=== PATIENT | male | born 1960 | race African-American/Black ===

== ENCOUNTER 2017-04-28 06:53 | Inpatient (IN) | payer OTHER ==
[~2017-04-28] VITALS: Ht 177.8 cm; Wt 96.2 kg
[2017-04-28] VITALS (11 sets, daily range): BP systolic 124–150; BP diastolic 64–96
[~2017-04-28 06:53] MED LIST: ASPIR 8181 MG ORAL; ATORVASTATIN CA40 MG ORAL; OMEPRAZOLE20 M2 ORAL; XELJANZ5 MG PO; ceFAZolin sod 1 GM in NS 55 ML IVP ONE; celeBREX 200mg Cap **SURGERY PATIENTS ONLY PO ONE; oxyCONTIN 20mg tab ORAL ONE
--- NOTE | 2017-04-28 07:04 | Pre-Procedure Note/Attestation ---
Pre-Procedure Note/Attestation Complete Prior to Procedure Planned Procedure: right Procedure Narrative: Rt MIGUEL ÁNGEL Indications for Procedure Pre-Operative Diagnosis: rt hip arthritis Attestation I attest that I discussed the nature of the procedure; its benefits; risks and complications; and alternatives (and the risks and benefits of such alternatives ), prior to the procedure, with the patient (or the patient's legal installation service representative). I attest that, if there was a reasonable possibility of needing a blood transfusion, the patient (or the patient's legal installation service representative) was given the [facility] standardized written summary, pursuant to the [place] Blood Safety Act ([place] Health and Safety Code # 1645, as amended). I attest that I re-evaluated the patient just prior to the surgery and that there has been no change in the patient's H&P, except as documented below: none RAJ WARNER Apr 28, 2017 07:04
[2017-04-28] MEDS ORDERED: Duramorph PF 5mg/10ml amp ONE (07:08)
[2017-04-28] MEDS ORDERED: Bupivacaine 0.5% Inj 30 ml vial INJ ONE (07:08)
[2017-04-28] MEDS ORDERED: NeoSporin Gu Irrig 1ml Amp IRRIG ONE (07:08)
[2017-04-28] MEDS ORDERED: Bacitracin 50000 Units Vial ONE (07:08)
[2017-04-28] MEDS ORDERED: Tranexamic Acid 1000mg-Patients>50kg (1st Dose) IVPB ONE ×2 (07:15)
[2017-04-28] MEDS ORDERED: HYDROmorphone 1mg/ml Carpuject SUBQ PRN (07:45)
[2017-04-28] MEDS ORDERED: Milk of Magnesia 30ml Ud ORAL PRN (07:45)
[2017-04-28] MEDS ORDERED: Propofol 200mg/20ml IV ONE (08:00)
[2017-04-28] MEDS ORDERED: Midazolam 2mg/2ml Inj ONE (08:00)
[2017-04-28] MEDS ORDERED: Sterile Water Irrig 1000ml IRRIG ONE (08:00)
[2017-04-28] MEDS ORDERED: fentaNYL 100 mcg/2 mL IV ONE (08:00)
[2017-04-28] MEDS ORDERED: Morphine Sulfate 4mg/ml Inj ONE (08:00)
[2017-04-28] MEDS ORDERED: NS Irrig 1000ml ONE (08:00)
[2017-04-28] MEDS ORDERED: LR 1000ml ONE (08:00)
--- NOTE | 2017-04-28 08:49 | Anethesia Preoperative Eval ---
Anesthesia Pre-op PMH/ROS General Date of Evaluation: Apr 28, 2017 Time of Evaluation: 07:22 Anesthesiologist: Kenneth ASA Score: ASA 3 Mallampati Score Class I : Soft palate, uvula, fauces, pillars visible Class II: Soft palate, uvula, fauces visible Class III: Soft palate, base of uvula visible Class IV: Only hard plate visible Mallampati Classification: Class IV Surgeon: Theo Diagnosis: R hip DJD Surgical Procedure: R hip total arthroplasty Anesthesia History: none Family History: no anesthesia problems Allergies: Coded Allergies: No Known Allergies (Unverified , 04/28/17) Past Medical History Cardiovascular: Reports: HTN - borderline Pulmonary: Reports: DANAE - severe sleep study pending, Denies: asthma, COPD, other Gastrointestinal/Genitourinary: Reports: GERD, Denies: CRI, ESRD, other Neurologic/Psychiatric: Denies: dementia, CVA, depression/anxiety, TIA, other Endocrine: Reports: DM - borderline HEENT: Denies: cataract (L), cataract (R), glaucoma, INUPIAT (L), INUPIAT (R), other Hematology/Immune: Denies: anemia, DVT, bleeding disorder, other Musculoskeletal/Integumentary: Reports: RA Other: obesity PMH Narrative: as above PSxH Narrative: Colonoscopy, bronchoscopy Anesthesia Pre-op Phys. Exam Physician Exam Last Vital Signs Date Time Temp Pulse Resp B/P (MAP) Pulse Ox O2 Delivery O2 Flow Rate FiO2 04/28/17 07:28 97.3 89 18 139/96 99 Room Air 97.3 Constitutional: NAD Neurologic: CN 2-12 intact Cardiovascular: RRR, no M/R/G Respiratory: CTA Gastrointestinal: other - obesity Airway Exam Mallampati Score: Class IV MO: limited Neck: Short and thick ROM: limited - only back of the thung visible Teeth: intact Dentures: no upper, no lower Anesthesia Pre-op A/P Labs see chart Studies Pre-op Studies: EKG - NSR Risk Assessment & Plan Assessment: ASA 3 Plan: SAB vs GA Status Change Before Surgery: No Pre-Antibiotics Drug: Ancef 2gr. Given Within 1 Hr of Incision: Yes Time Given: 08:50 JUAN CARLOS SORENSEN M.D. Apr 28, 2017 08:49
[2017-04-28] MEDS ORDERED: LR 1000ml 1,000 ML IVLG SCH (09:14)
[2017-04-28] MEDS ORDERED: Hydromorphone 0.5mg/0.5ml inj IVP PRN (09:15)
[2017-04-28] MEDS ORDERED: Midazolam 2mg/2ml Inj IVP PRN (09:15)
[2017-04-28] MEDS ORDERED: Ketorolac 30mg Inj IV PRN (09:15)
[2017-04-28] MEDS ORDERED: DiphenhydrAMINE 50mg/ml Inj IVP PRN (09:15)
--- NOTE | 2017-04-28 11:27 | Brief Operative Note ---
Immediate Post Operative Note Operative Note Chief Complaint: rt hip pain Pre-op Diagnosis: rt hip arthritis Procedure: rt amari Post-op Diagnosis: same as pre-op Findings: consistent w/pre-op dx studies Surgeon: md tushar Product Development Coordinator: sara gonzalez Anesthesiologist: md pepper Anesthesia: general, regional Specimen: yes Complications: none Condition: stable Fluids: ns Estimated Blood Loss: minimal Drains: none Implant(s) used?: Yes - burgos and SHANIA Ramos Apr 28, 2017 11:27
--- NOTE | 2017-04-28 11:46 | Immediate Post-Op Evaluation ---
Immediate Post-Op Evalulation Immediate Post-Op Evalulation Procedure: R total hip arthroplasty Date of Evaluation: Apr 28, 2017 Time of Evaluation: 11:45 IV Fluids: 2100 Blood Products: none Estimated Blood Loss: 300 Urinary Output: 150 Blood Pressure Systolic: 124 Blood Pressure Diastolic: 89 Pulse Rate: 98 Respiratory Rate: 22 O2 Sat by Pulse Oximetry: 98 Temperature (Fahrenheit): 98.1 Pain Score (1-10): 1 Nausea: No Vomiting: No Complications none Patient Status: awake, patent, none Hydration Status: adequate JUAN CARLOS SORENSEN M.D. Apr 28, 2017 11:46
--- NOTE | 2017-04-28 12:30 | Diagnostic Imaging Report ---
Indication: Intraoperative Technique: One view of the pelvis Comparison: none Findings: Intraoperative images demonstrates resection of the right femoral neck and greater trochanter, placement of a femoral broach and acetabular cup Impression: Intraoperative imaging, as described
--- NOTE | 2017-04-28 13:50 | Diagnostic Imaging Report ---
Indication: Postoperative, status post right hip arthroplasty Technique: One view of the pelvis Comparison: One hour earlier Findings: Right hip hemiarthroplasty prosthesis is in place, good anatomic alignment. Retained air from the surgical wound is seen within the soft tissues. There is a Acosta catheter again demonstrated. Impression: Status post right hip hemiarthroplasty. No unusual features
[2017-04-28] MEDS: Docusate 100mg cap ORAL SCH ×2 (15:38→18:00)
[2017-04-28] MEDS: D5 1/2NS w/KCl 20mEq 1,000 ML IV SCH (15:38)
[2017-04-28] MEDS: ceFAZolin sod 2 GM in D5W 110 ML IV SCH ×2 (16:51→23:20)
--- NOTE | 2017-04-28 17:00 | Operative Note - Dictated ---
DATE OF OPERATION: 04/28/2017 PREOPERATIVE DIAGNOSIS: Right hip end-stage arthritis. POSTOPERATIVE DIAGNOSIS: Right hip end-stage arthritis. PROCEDURE: Right total hip arthroplasty using Moses and Nephew system, size 54, R3 cup with 2 screws, 120 mm and 125 mm, with a 20-degree lip ultra cross-linked polyethylene and size 7 standard offset anthology femoral component with 36 mm Oxinium +0 head. SURGEON: Wil Venegas M.D. SUPERVISOR PIPELINES: Renata Ellison PA-C. ANESTHESIOLOGIST: Hayden Jaquez M.D. ANESTHESIA: Spinal anesthesia combined with block for postoperative pain management. ESTIMATED BLOOD LOSS: Less than 100 mL. COMPLICATIONS: None. BRIEF HISTORY: The patient is a very pleasant 56-year-old gentleman, who has had ongoing right hip and anterior groin pain. He was evaluated and x-ray showed end-stage arthritis. After full discussion of the risks and benefits of the surgery and complications associated, which would including infection, bleeding, neurovascular complication, possibility of instability, possibility of dislocation, possibility of leg length discrepancy, possibility of decreased range of motion, possibility of need for further surgery, and resection arthroplasty and revision down the line as well as DVT and PEs, he opted for surgical treatment as described above. OPERATIVE PROCEDURE: The patient was brought to the operating table and was placed supine. All pressure points well padded. A spinal anesthesia was induced. The right hip was prepped and draped in usual sterile fashion. The time-out was performed and preop antibiotics were given and tranexamic acid was given. The right standard approach to the hip was undertaken. The posterolateral approach to the hip was undertaken. Incision was taken through the subcutaneous tissue and gluteal fascia, and tensor fascia was opened. The Charnley retractors were placed and short external rotators were released and the capsule was T'd and it was tagged for later repair. The release was performed medially and laterally. The head was dislocated and a standard head cut was performed without any complication. The cut was performed approximately 1 cm proximal to the lesser trochanter. Once this was completed, the anterior acetabular retractors were placed in and various retractors were placed around the acetabulum to get good access. Labrum was resected. There was a small medial osteophyte, which was reamed out with a 47 mm reamer. Subsequently, sequential reaming was performed all the way up to size 54 reamer, which provided excellent stability and good bone contact. 40 degrees of anteversion and 45 degrees of inclination was recreated. At this point, trial component was applied and appeared to be of perfect size. Acetabulum was thoroughly irrigated and an R3 cup was then malleted in with the same version and inclination and the cup was fully seated and there was excellent stability. Two dome screws were placed in for additional stability, 120 mm and 125 mm. Excellent stability was obtained. At this point, an ultra cross-linked polyethylene with [id number] was then placed in and locked in without any complication. The locking mechanism was checked and rechecked appeared to be perfect. At this point, care was given to the femur. The retractors on the acetabulum were removed. The retractors were placed around the femur. A box toe maker was used to lateralize the entry point of the femur and a canal finder was placed in. Sequential broaching was then performed from 0 to 7 mm and this provided excellent fill of the canal. At this point, the calcar reaming was performed and initially a high offset and subsequently, a standard offset trial was used with a 0 neck length and 36 mm diameter. This construct was reduced. Leg lengths were checked and appeared to be perfect. The stability was checked and appeared to be perfect at zero, 30 degrees, 45 degrees, 90 degrees of internal rotation, with neutral adduction. The external rotation was checked. There was approximately 45 degrees external rotation without any issues, and there was no anterior instability. Wounds were thoroughly irrigated. Intraoperative x-rays were obtained and leg length appeared to be equal. At this point, the entire construct was dislocated. Trial components removed and the canal was thoroughly irrigated. Acetabulum was thoroughly irrigated and at this point, a standard offset size 7 anthology stem was then placed in and malleted in without any complication. A 36 mm Oxinium +0 head was then applied and Linton taper was dried and locked in without complication. The entire construct was reduced without any complication. Once reduction was completed, the stability and ligament was checked and appeared to be perfect as described previously. At this point, the capsule was then repaired back onto the trochanter using #2 FiberWire sutures with drill hole. Wounds were thoroughly irrigated using copious amount of Simpulse irrigation. The tensor fascia and gluteal fascia was closed using #1 Vicryl suture. Subcutaneous tissue was closed using 2-0 Vicryl suture and the skin was closed using 3-0 Monocryl suture. Lap counts and instrument counts were all correct at the end of the case. Sterile dressing was applied and the patient was taken to the recovery room in stable condition. An abduction pillow was placed in for moving the patient off the table. Wil Venegas M.D. DR: LAWRENCE JOB#: [id number] CC:
--- NOTE | 2017-04-28 20:04 | General Progress Note ---
Assessment/Plan Status Narrative S/P TOTAL HIP ARTHROPLASTY MINIMAL BLOO DLOSS PERIOPERATIVE ANTIBIOTIC PROPHYALXIS PT OT FOLLOW SHELDON PEARL MEDS HOLD XELJANZ. Subjective Date patient seen: Apr 28, 2017 Time patient seen: 20:02 Constitutional: Reports: no symptoms HEENT: Reports: no symptoms Cardiovascular: Reports: no symptoms Respiratory: Reports: no symptoms Gastrointestinal/Abdominal: Reports: no symptoms Allergies: Coded Allergies: No Known Allergies (Unverified , 04/28/17) Objective Last 24 Hour Vital Signs Date Time Temp Pulse Resp B/P (MAP) Pulse Ox O2 Delivery O2 Flow Rate FiO2 04/28/17 15:12 98.1 109 20 148/90 89 98.1 04/28/17 14:21 98.1 109 20 148/90 89 98.1 04/28/17 13:42 98.0 95 20 150/89 96 98.0 04/28/17 12:27 98.6 94 20 149/81 96 Nasal Cannula 3.0 98.6 04/28/17 12:15 93 20 139/68 96 Nasal Cannula 3.0 04/28/17 12:00 93 20 141/90 99 Nasal Cannula 3.0 04/28/17 11:46 208.6 98 22 98 04/28/17 11:44 96 20 126/84 99 Nasal Cannula 3.0 04/28/17 11:39 103 20 144/64 99 Simple Mask 8.0 04/28/17 11:34 98.1 104 20 124/89 99 Simple Mask 8.0 98.1 04/28/17 07:28 97.3 89 18 139/96 99 Room Air 97.3 Height (Feet): 5 Height (Inches): 10.00 Weight (Pounds): 212 General Appearance: WD/WN Neck: non-tender Cardiovascular: normal rate, no JVD Respiratory/Chest: lungs clear Abdomen: soft Extremities: other - HIP DRESSING IS DRY CAROLINE LUGO Apr 28, 2017 20:04
[2017-04-28] MEDS ORDERED: Atorvastatin 20mg tab ORAL SCH (21:00)
[2017-04-28] MEDS: oxyCONTIN 20mg tab ORAL SCH (21:23)
[2017-04-28] MEDS: DiphenhydrAMINE 50mg/ml Inj IVP PRN (23:16)
[2017-04-29] VITALS (7 sets, daily range): BP systolic 125–136; BP diastolic 82–87
[2017-04-29] MEDS: D5 1/2NS w/KCl 20mEq 1,000 ML IV SCH ×2 (03:00→17:29)
[2017-04-29] MEDS: Norco 5mg/325mg tab ORAL PRN (04:27)
[2017-04-29] MEDS: DiphenhydrAMINE 50mg/ml Inj IVP PRN (05:30)
[2017-04-29 07:38] LABS: BASOPHILS % (AUTO) 0.7 % (0.0-2.0); EOSINOPHILS % (AUTO) 0.6 % (0.0-3.0); HEMATOCRIT 36.3 % (42.0-52.0); HEMOGLOBIN 12.3 G/DL (14.2-18.0); LYMPHOCYTES % (AUTO) 9.1 % (20.0-45.0); MEAN CORPUSCULAR VOLUME 89 FL (80-99); MONOCYTES % (AUTO) 10.7 % (1.0-10.0); NEUTROPHILS % (AUTO) 78.9 % (45.0-75.0); PLATELET COUNT 176 K/UL (150-450); WHITE BLOOD COUNT 7.9 K/UL (4.8-10.8)
[2017-04-29 07:46] LABS: ANION GAP 5 mmol/L (5-15); BLOOD UREA NITROGEN 17 mg/dL (7-18); CALCIUM 8.3 MG/DL (8.5-10.1); CARBON DIOXIDE 33 MMOL/L (21-32); CHLORIDE 102 MMOL/L (98-107); CREATININE 1.1 MG/DL (0.55-1.30); POTASSIUM 4.2 MMOL/L (3.5-5.1); SODIUM 140 MMOL/L (136-145)
--- NOTE | 2017-04-29 08:09 | Orthopedic Progress Note ---
Orthopedic - Progress Note Subjective Symptoms: improved - some pain last night. currently standing/walking with PT Objective Vital Signs Laboratory Tests Test 04/29/17 06:45 White Blood Count 7.9 K/UL (4.8-10.8) Red Blood Count 4.10 M/UL (4.70-6.10) L Hemoglobin 12.3 G/DL (14.2-18.0) L Hematocrit 36.3 % (42.0-52.0) L Mean Corpuscular Volume 89 FL (80-99) Mean Corpuscular Hemoglobin 30.0 PG (27.0-31.0) Mean Corpuscular Hemoglobin Concent 33.9 G/DL (32.0-36.0) Red Cell Distribution Width 14.0 % (11.6-14.8) Platelet Count 176 K/UL (150-450) Mean Platelet Volume 10.0 FL (6.5-10.1) Neutrophils (%) (Auto) 78.9 % (45.0-75.0) H Lymphocytes (%) (Auto) 9.1 % (20.0-45.0) L Monocytes (%) (Auto) 10.7 % (1.0-10.0) H Eosinophils (%) (Auto) 0.6 % (0.0-3.0) Basophils (%) (Auto) 0.7 % (0.0-2.0) Sodium Level 140 MMOL/L (136-145) Potassium Level 4.2 MMOL/L (3.5-5.1) Chloride Level 102 MMOL/L (98-107) Carbon Dioxide Level 33 MMOL/L (21-32) H Anion Gap 5 mmol/L (5-15) Blood Urea Nitrogen 17 mg/dL (7-18) Creatinine 1.1 MG/DL (0.55-1.30) Estimat Glomerular Filtration Rate > 60 mL/min (>60) Glucose Level 123 MG/DL (74-106) H Calcium Level 8.3 MG/DL (8.5-10.1) L Last 24 Hour Vital Signs Date Time Temp Pulse Resp B/P (MAP) Pulse Ox O2 Delivery O2 Flow Rate FiO2 04/29/17 07:57 99.4 103 20 135/86 98 Bi-pap 99.4 04/29/17 05:18 90 14 Bi-pap 30 04/29/17 05:16 90 14 98 Facial 30 04/29/17 04:39 98.7 96 20 136/84 98 Bi-pap 98.7 04/29/17 03:30 89 18 97 Facial 30 04/29/17 01:15 92 20 98 Facial 30 04/29/17 00:00 98.9 92 18 125/84 98 Bi-pap 98.9 04/28/17 23:00 97 20 100 Facial 40 04/28/17 20:00 97.9 102 18 142/91 94 97.9 04/28/17 15:12 98.1 109 20 148/90 89 98.1 04/28/17 14:21 98.1 109 20 148/90 89 98.1 04/28/17 13:42 98.0 95 20 150/89 96 98.0 04/28/17 12:27 98.6 94 20 149/81 96 Nasal Cannula 3.0 98.6 04/28/17 12:15 93 20 139/68 96 Nasal Cannula 3.0 04/28/17 12:00 93 20 141/90 99 Nasal Cannula 3.0 04/28/17 11:46 208.6 98 22 98 04/28/17 11:44 96 20 126/84 99 Nasal Cannula 3.0 04/28/17 11:39 103 20 144/64 99 Simple Mask 8.0 04/28/17 11:34 98.1 104 20 124/89 99 Simple Mask 8.0 98.1 I&O Intake and Output 04/28/17 04/29/17 19:00 07:00 Intake Total 2575 ml 1380 ml Output Total 450 ml 500 ml Balance 2125 ml 880 ml Intake Oral 480 ml IV Total 2575 ml 900 ml Output Urine Total 150 ml 500 ml Estimated Blood Loss 300 ml # Voids 1 Wound: clean, dry, intact Drains: none Neuro Status: normal Vascular Status: normal Additional Comments xray reviewed. excellent Assessment Post-op Diagnosis POD 1 Procedure Performed rt amari Plan Plan: PT, pain management, discharge plan - home with services and DME- likely Thursday SHANIA ACE Apr 29, 2017 08:09
--- NOTE | 2017-04-29 08:26 | 48 Hour Post Anesthesia Eval ---
Post Anesthesia Evaluation Procedure: R total hip arthroplasty Date of Evaluation: Apr 29, 2017 Time of Evaluation: 06:50 Blood Pressure Systolic: 136 0: 84 Pulse Rate: 96 Respiratory Rate: 14 Temperature (Fahrenheit): 98.7 O2 Sat by Pulse Oximetry: 98 Airway: patent - currentlly on bipap-toleerating well Nausea: No Vomiting: No Pain Intensity: 0 Hydration Status: adequate Cardiopulmonary Status: at baseline Mental Status/LOC: patient returned to baseline Post-Anesthesia Complications: 0 Follow-up care needed: N/A - further care as per primary team TERRANCE KIDD M.D. Apr 29, 2017 08:26
[2017-04-29] MEDS: Docusate 100mg cap ORAL SCH ×3 (08:34→17:29)
[2017-04-29] MEDS: celeBREX 200mg Cap **SURGERY PATIENTS ONLY ORAL SCH (08:35)
[2017-04-29] MEDS: oxyCONTIN 20mg tab ORAL SCH (08:35)
[2017-04-29] MEDS: Enoxaparin 40mg Inj SUBQ SCH (08:36)
--- NOTE | 2017-04-29 19:33 | General Progress Note ---
Assessment/Plan Status Narrative s/p thr post op emesis dc oxycontin pt ot dvt prophyalxis norco prn tolerate up to level 5 pain to decrease nausea Subjective Date patient seen: Apr 29, 2017 Time patient seen: 19:31 Gastrointestinal/Abdominal: Reports: other - has beenhaving [place] since yesterday unable to keep food in Allergies: Coded Allergies: No Known Allergies (Unverified , 04/28/17) Objective Last 24 Hour Vital Signs Date Time Temp Pulse Resp B/P (MAP) Pulse Ox O2 Delivery O2 Flow Rate FiO2 04/29/17 19:13 Nasal Cannula 2.0 28 04/29/17 19:13 95 Nasal Cannula 2.0 28 04/29/17 16:00 99.3 100 19 126/84 98 Bi-pap 99.3 04/29/17 12:00 99.2 100 19 127/83 98 Bi-pap 99.2 04/29/17 08:26 209.7 96 14 98 04/29/17 07:57 99.4 103 20 135/86 98 Bi-pap 99.4 04/29/17 05:18 90 14 Bi-pap 30 04/29/17 05:16 90 14 98 Facial 30 04/29/17 04:39 98.7 96 20 136/84 98 Bi-pap 98.7 04/29/17 03:30 89 18 97 Facial 30 04/29/17 01:15 92 20 98 Facial 30 04/29/17 00:00 98.9 92 18 125/84 98 Bi-pap 98.9 04/28/17 23:00 97 20 100 Facial 40 04/28/17 20:00 97.9 102 18 142/91 94 97.9 Intake and Output 04/28/17 04/29/17 19:00 07:00 Intake Total 2575 ml 1380 ml Output Total 450 ml 500 ml Balance 2125 ml 880 ml Intake Oral 480 ml IV Total 2575 ml 900 ml Output Urine Total 150 ml 500 ml Estimated Blood Loss 300 ml # Voids 1 Laboratory Tests 04/29/17 06:45: White Blood Count 7.9, Red Blood Count 4.10L, Hemoglobin 12.3L, Hematocrit 36.3L , Mean Corpuscular Volume 89, Mean Corpuscular Hemoglobin 30.0, Mean Corpuscular Hemoglobin Concent 33.9, Red Cell Distribution Width 14.0, Platelet Count 176, Mean Platelet Volume 10.0, Neutrophils (%) (Auto) 78.9H, Lymphocytes (%) (Auto) 9.1L, Monocytes (%) (Auto) 10.7H, Eosinophils (%) (Auto) 0.6, Basophils (%) (Auto) 0.7, Sodium Level 140, Potassium Level 4.2, Chloride Level 102, Carbon Dioxide Level 33H, Anion Gap 5, Blood Urea Nitrogen 17, Creatinine 1.1, Estimat Glomerular Filtration Rate > 60, Glucose Level 123H, Calcium Level 8.3L Height (Feet): 5 Height (Inches): 10.00 Weight (Pounds): 212 General Appearance: WD/WN EENT: PERRL/EOMI Neck: non-tender Cardiovascular: normal rate, regular rhythm, no JVD Respiratory/Chest: lungs clear Abdomen: soft, other - has a small umblicalhernia reducible non tender CAROLINE LUGO Apr 29, 2017 19:32
[2017-04-30] MEDS: Norco 5mg/325mg tab ORAL PRN (01:58)
[2017-04-30 04:00] VITALS: BP 126/81
[2017-04-30] MEDS: D5 1/2NS w/KCl 20mEq 1,000 ML IV SCH (05:30)
[2017-04-30 07:22] LABS: BASOPHILS % (AUTO) 0.5 % (0.0-2.0); EOSINOPHILS % (AUTO) 1.4 % (0.0-3.0); HEMATOCRIT 33.9 % (42.0-52.0); HEMOGLOBIN 11.4 G/DL (14.2-18.0); LYMPHOCYTES % (AUTO) 14.4 % (20.0-45.0); MEAN CORPUSCULAR VOLUME 87 FL (80-99); MONOCYTES % (AUTO) 11.7 % (1.0-10.0); PLATELET COUNT 161 K/UL (150-450); RED BLOOD COUNT 3.89 M/UL (4.70-6.10); RED CELL DISTRIBUTION WIDTH 13.5 % (11.6-14.8); WHITE BLOOD COUNT 6.3 K/UL (4.8-10.8)
[2017-04-30 08:00] VITALS: BP 122/88
[2017-04-30] MEDS: Docusate 100mg cap ORAL SCH ×3 (08:17→17:19)
[2017-04-30] MEDS: celeBREX 200mg Cap **SURGERY PATIENTS ONLY ORAL SCH (08:18)
[2017-04-30] MEDS: Enoxaparin 40mg Inj SUBQ SCH (08:20)
--- NOTE | 2017-04-30 08:52 | Orthopedic Progress Note ---
Orthopedic - Progress Note Subjective Symptoms: c/o post-op hip pain Objective Vital Signs Last 24 Hour Vital Signs Date Time Temp Pulse Resp B/P (MAP) Pulse Ox O2 Delivery O2 Flow Rate FiO2 04/30/17 08:00 99.1 102 19 122/88 99 Bi-pap 99.1 04/30/17 06:53 96 Bi-pap 30 04/30/17 06:35 Bi-pap 30 04/30/17 06:35 102 16 94 28 04/30/17 05:13 93 14 96 Facial 30 04/30/17 04:00 98.2 102 16 126/81 99 98.2 04/30/17 02:21 105 17 97 Facial 30 04/30/17 01:30 97.6 97.6 04/30/17 01:02 110 18 97 Facial 30 04/29/17 23:58 100.6 105 16 131/82 99 100.6 04/29/17 22:34 105 15 96 Facial 30 04/29/17 20:48 99.8 118 18 126/87 99 99.8 04/29/17 19:13 Nasal Cannula 2.0 28 04/29/17 19:13 95 Nasal Cannula 2.0 28 04/29/17 16:00 99.3 100 19 126/84 98 Bi-pap 99.3 04/29/17 12:00 99.2 100 19 127/83 98 Bi-pap 99.2 I&O Intake and Output 04/29/17 04/30/17 19:00 07:00 Intake Total 1500 ml 1260 ml Output Total 820 ml Balance 680 ml 1260 ml Intake Oral 750 ml 360 ml IV Total 750 ml 900 ml Output Urine Total 820 ml # Voids 3 # Bowel Movements 1 Wound: clean Drains: none Neuro Status: normal Vascular Status: normal Assessment Post-op Diagnosis s/p right MIGUEL ÁNGEL doing well Plan Plan: PT, pain management, discharge plan, discharge to home RAJ WARNER Apr 30, 2017 08:52
--- NOTE | 2017-04-30 10:29 | General Progress Note ---
Assessment/Plan Status Narrative S/P Total hip replacement Assessment/Plan DVT prophylaxix Off Abxs Pain Meds PT Subjective Allergies: Coded Allergies: No Known Allergies (Unverified , 04/28/17) Subjective Pain is manageable Objective Last 24 Hour Vital Signs Date Time Temp Pulse Resp B/P (MAP) Pulse Ox O2 Delivery O2 Flow Rate FiO2 04/30/17 08:00 99.1 102 19 122/88 99 Bi-pap 99.1 04/30/17 06:53 96 Bi-pap 30 04/30/17 06:35 Bi-pap 30 04/30/17 06:35 102 16 94 28 04/30/17 05:13 93 14 96 Facial 30 04/30/17 04:00 98.2 102 16 126/81 99 98.2 04/30/17 02:21 105 17 97 Facial 30 04/30/17 01:30 97.6 97.6 04/30/17 01:02 110 18 97 Facial 30 04/29/17 23:58 100.6 105 16 131/82 99 100.6 04/29/17 22:34 105 15 96 Facial 30 04/29/17 20:48 99.8 118 18 126/87 99 99.8 04/29/17 19:13 Nasal Cannula 2.0 28 04/29/17 19:13 95 Nasal Cannula 2.0 28 04/29/17 16:00 99.3 100 19 126/84 98 Bi-pap 99.3 04/29/17 12:00 99.2 100 19 127/83 98 Bi-pap 99.2 Intake and Output 04/29/17 04/30/17 19:00 07:00 Intake Total 1500 ml 1260 ml Output Total 820 ml Balance 680 ml 1260 ml Intake Oral 750 ml 360 ml IV Total 750 ml 900 ml Output Urine Total 820 ml # Voids 3 # Bowel Movements 1 Laboratory Tests 04/30/17 06:00: White Blood Count 6.3, Red Blood Count 3.89L, Hemoglobin 11.4L, Hematocrit 33.9L , Mean Corpuscular Volume 87, Mean Corpuscular Hemoglobin 29.3, Mean Corpuscular Hemoglobin Concent 33.7, Red Cell Distribution Width 13.5, Platelet Count 161, Mean Platelet Volume 10.5H, Neutrophils (%) (Auto) 72.0, Lymphocytes (%) (Auto) 14.4L, Monocytes (%) (Auto) 11.7H, Eosinophils (%) (Auto) 1.4, Basophils (%) (Auto) 0.5 Height (Feet): 5 Height (Inches): 10.00 Weight (Pounds): 212 Cardiovascular: normal rate Respiratory/Chest: lungs clear Edema: no edema noted Generalized SEKOU WHITE Apr 30, 2017 10:29
[2017-04-30 12:00] VITALS: BP 124/75
[2017-04-30 16:00] VITALS: BP 127/76
[2017-04-30] MEDS: HYDROcodone/Acetamin 7.5/325 tab ORAL PRN (17:21)
[2017-04-30 20:00] VITALS: BP 137/88
[2017-05-01] VITALS: BP 123/85
[2017-05-01 04:00] VITALS: BP 129/87
[2017-05-01] MEDS: Norco 5mg/325mg tab ORAL PRN (04:31)
[2017-05-01 07:35] LABS: BASOPHILS % (AUTO) 0.7 % (0.0-2.0); EOSINOPHILS % (AUTO) 3.3 % (0.0-3.0); HEMATOCRIT 32.1 % (42.0-52.0); HEMOGLOBIN 10.7 G/DL (14.2-18.0); LYMPHOCYTES % (AUTO) 12.4 % (20.0-45.0); MEAN CORPUSCULAR VOLUME 88 FL (80-99); MONOCYTES % (AUTO) 9.2 % (1.0-10.0); NEUTROPHILS % (AUTO) 74.4 % (45.0-75.0); PLATELET COUNT 165 K/UL (150-450); RED BLOOD COUNT 3.63 M/UL (4.70-6.10); RED CELL DISTRIBUTION WIDTH 13.7 % (11.6-14.8); WHITE BLOOD COUNT 5.6 K/UL (4.8-10.8)
--- NOTE | 2017-05-01 07:58 | Orthopedic Progress Note ---
Orthopedic - Progress Note Subjective Symptoms: improved Objective Vital Signs Laboratory Tests Test 05/01/17 05:35 White Blood Count Pending Red Blood Count Pending Hemoglobin Pending Hematocrit Pending Mean Corpuscular Volume Pending Mean Corpuscular Hemoglobin Pending Mean Corpuscular Hemoglobin Concent Pending Red Cell Distribution Width Pending Platelet Count Pending Mean Platelet Volume Pending Neutrophils (%) (Auto) Pending Lymphocytes (%) (Auto) Pending Monocytes (%) (Auto) Pending Eosinophils (%) (Auto) Pending Basophils (%) (Auto) Pending Last 24 Hour Vital Signs Date Time Temp Pulse Resp B/P (MAP) Pulse Ox O2 Delivery O2 Flow Rate FiO2 05/01/17 05:30 98.2 05/01/17 04:00 98.2 102 19 129/87 100 98.2 05/01/17 00:00 98.0 100 21 123/85 99 98.0 04/30/17 22:07 104 18 98 28 04/30/17 20:00 98.8 102 19 137/88 99 98.8 04/30/17 17:15 Nasal Cannula 2.0 28 04/30/17 17:15 96 Nasal Cannula 2.0 28 04/30/17 16:00 98.9 99 18 127/76 98 Bi-pap 98.9 04/30/17 12:00 99.0 97 18 124/75 99 Bi-pap 99.0 04/30/17 08:00 99.1 102 19 122/88 99 Bi-pap 99.1 I&O Intake and Output 04/30/17 05/01/17 19:00 07:00 Intake Total 1550 ml 640 ml Output Total 1200 ml 400 ml Balance 350 ml 240 ml Intake Oral 800 ml 640 ml IV Total 750 ml Output Urine Total 1200 ml 400 ml # Voids 4 2 Wound: clean, dry, intact Drains: none Neuro Status: normal Vascular Status: normal Assessment Post-op Diagnosis POD 3 Procedure Performed rt amari Plan Plan: discharge to home - with services and DME. fu as outpt in 2 weeks SHANIA ACE May 01, 2017 07:58
[2017-05-01 08:00] VITALS: BP 130/80
--- NOTE | 2017-05-01 08:00 | Discharge Summary ---
SHANIA ACE 05/01/17 0800: Discharge Summary Hospital Course Date of Admission Apr 28, 2017 at 06:53 Date of Discharge 05/01/17 Admitting Diagnosis rt hip AVN HPI Kaz Jorge is a 56 year old male who was admitted on Apr 28, 2017 at 06:53 for Traumatic Arthropathy Hip Procedures Rt MIGUEL ÁNGEL Hospital Course benign Discharge Medications Continued Medications: Atorvastatin Calcium* (Atorvastatin Calcium*) 40 Mg Tablet 40 MG ORAL BEDTIME, TAB (This prescription has been renewed) Omeprazole (Omeprazole) 20 Mg Capsule.dr 20 MG ORAL DAILY, CAP (This prescription has been renewed) Discharge Condition Upon Discharge: stable Discharge Disposition Patient was discharged to home with home care and DME. f/u as outpt in 2 weeks Molly Petersen NP ([facility]) 05/04/17 1256: Discharge Summary Hospital Course Hospital Course DISCHARGE DIAGNOSIS Right hip end-stage arthritis. S/P Right total hip arthroplasty Discharge Medications Continued Medications: Atorvastatin Calcium* (Atorvastatin Calcium*) 40 Mg Tablet 40 MG ORAL BEDTIME, TAB (This prescription has been renewed) Omeprazole (Omeprazole) 20 Mg Capsule.dr 20 MG ORAL DAILY, CAP (This prescription has been renewed) Discharge Condition Upon Discharge: stable Discharge Instructions Discharge Instructions Special Instructions I have been assigned to complete a D/C Summary on this account. I was not involved in the patient management SHANIA ACE May 01, 2017 08:00 Molly Petersen NP ([facility]) May 04, 2017 12:56
[2017-05-01] MEDS: Docusate 100mg cap ORAL SCH ×2 (10:59→12:21)
[2017-05-01] MEDS: celeBREX 200mg Cap **SURGERY PATIENTS ONLY ORAL SCH (11:01)
[2017-05-01] MEDS: Enoxaparin 40mg Inj SUBQ SCH (11:03)
[2017-05-01] MEDS: HYDROcodone/Acetamin 7.5/325 tab ORAL PRN (11:05)
[2017-05-01 12:00] VITALS: BP 141/93
--- NOTE | 2017-05-01 12:43 | General Progress Note ---
Assessment/Plan Assessment/Plan DVT prophylaxis Pain Meds laxatives DC today Subjective Allergies: Coded Allergies: No Known Allergies (Unverified , 04/28/17) Subjective feels ok Objective Last 24 Hour Vital Signs Date Time Temp Pulse Resp B/P (MAP) Pulse Ox O2 Delivery O2 Flow Rate FiO2 05/01/17 12:04 97.8 05/01/17 11:05 97.8 05/01/17 08:00 97.8 89 19 130/80 97 97.8 05/01/17 06:35 96 Nasal Cannula 2.0 28 05/01/17 06:35 Nasal Cannula 2.0 28 05/01/17 05:30 98.2 05/01/17 04:00 98.2 102 19 129/87 100 98.2 05/01/17 00:00 98.0 100 21 123/85 99 98.0 04/30/17 22:07 104 18 98 28 04/30/17 20:00 98.8 102 19 137/88 99 98.8 04/30/17 17:15 Nasal Cannula 2.0 28 04/30/17 17:15 96 Nasal Cannula 2.0 28 04/30/17 16:00 98.9 99 18 127/76 98 Bi-pap 98.9 Intake and Output 04/30/17 05/01/17 19:00 07:00 Intake Total 1550 ml 640 ml Output Total 1200 ml 400 ml Balance 350 ml 240 ml Intake Oral 800 ml 640 ml IV Total 750 ml Output Urine Total 1200 ml 400 ml # Voids 4 2 Laboratory Tests 05/01/17 05:35: White Blood Count 5.6, Red Blood Count 3.63L, Hemoglobin 10.7L, Hematocrit 32.1L , Mean Corpuscular Volume 88, Mean Corpuscular Hemoglobin 29.4, Mean Corpuscular Hemoglobin Concent 33.2, Red Cell Distribution Width 13.7, Platelet Count 165, Mean Platelet Volume 10.1, Neutrophils (%) (Auto) 74.4, Lymphocytes ( %) (Auto) 12.4L, Monocytes (%) (Auto) 9.2, Eosinophils (%) (Auto) 3.3H, Basophils (%) (Auto) 0.7 Height (Feet): 5 Height (Inches): 10.00 Weight (Pounds): 212 Cardiovascular: normal rate Respiratory/Chest: lungs clear Edema: no edema noted Generalized SEKOU WHITE May 01, 2017 12:43
[2017-05-01] MEDS ORDERED: Tubing IV Secondary IV ONE (13:20)
== END 2017-05-01 13:21 | disposition home health service (06) | DRG 470 ==
LOC: SDSOVERFLO 06:53 → 3E 12:56
PROC: 0SR906A Replacement of Right Hip Joint with Oxidized Zirconium on Polyethylene Synthetic Substitute, Uncemented, Open Approach (ICD-10-PCS; principal; 2017-04-28 08:30)
DX: M12.551 Traumatic arthropathy, right hip (principal); E66.9 Obesity, unspecified; E78.5 Hyperlipidemia, unspecified; M25.751 Osteophyte, right hip; Z68.30 Body mass index [BMI] 30.0-30.9, adult; R73.03 Prediabetes
CPT/HCPCS: 36415; 72170; 80048; 85025; 86850; 86900; 86901; 86920; 87081; 94003; 94150; 94660; 94664; 94760; J2250